=== PATIENT | female | born 1945 | race Caucasian/White ===

== ENCOUNTER 2016-10-17 03:48 | Inpatient (IN) | payer BC, MEDICARE ==
[~2016-10-17] VITALS: Ht 167.6 cm; Wt 95.9 kg
[2016-10-17 04:54] LABS: Urine Bilirubin Negative (Negative); Urine Blood Negative /uL (Negative); Urine Color Yellow (Yellow); Urine Glucose Normal (Normal); Urine Hyaline Cast FEW /lpf (0 - 2); Urine Ketone 1+ (Negative); Urine Mucus FEW (None Seen); Urine Nitrite Negative (Negative); Urine RBC <1 /hpf (0 - 4); Urine Squamous Epithelial Cell FEW /hpf (<5); Urine Urobilinogen Normal (Negative); Urine pH 5.5 (5.0-8.0)
[2016-10-17 05:05] LABS: Basophils # (auto) 0 uL; Basophils % (auto) 0.2 % (0.0-2.0); Eosinophils # (auto) 0 uL; Eosinophils % (auto) 0.2 % (0.0-7.0); Hematocrit 42.2 % (36.0-46.0); Hemoglobin 14.4 g/dL (12.2-16.2); Lymphocytes # (auto) 0.7 uL; Lymphocytes % (auto) 5.7 % (10.0-50.0); Mean Corpuscular Hemoglobin 32.6 pg (28.0-32.0); Mean Corpuscular Hgb Conc. 34.1 g/dL (32.0-36.0); Mean Corpuscular Volume 95.8 fL (80.0-100.0); Mean Platelet Volume 7.4 fL (7.4-10.4); Monocytes # (auto) 0.5 uL; Monocytes % (auto) 3.9 % (0.0-12.0); Neutrophils # (auto) 10.5 uL; Platelet Count (auto) 252 10^3/uL (140-450); Red Cell Distribution Width 12.9 % (11.6-16.0); White Blood Cell 11.7 10^3/uL (4.4-10.8)
[2016-10-17 05:25] LABS: Albumin 3.5 g/dL (3.4-5.0); BUN/Creatinine Ratio 24.2; Bilirubin, Total 0.5 mg/dL (0.2-1.0); Calcium 8.8 mg/dL (8.5-10.1); Magnesium 2.1 mg/dL (1.6-2.6); Total Protein 7.3 g/dL (6.4-8.2)
[2016-10-17] MEDS ORDERED: ONDANSETRON HCL 4 MG/2 ML VIAL IV ONE (07:15)
[2016-10-17] MEDS ORDERED: SODIUM CHLORIDE 0.9% 1,000 ML IV ONE ×2 (08:15→10:55)
[2016-10-17] MEDS ORDERED: cefTRIAXone 1GM/50ML D5W 50 ML IV ONE (08:15)
[2016-10-17] MEDS ORDERED: MORPHINE SULFATE 4 MG/ML SYRG IV ONE (08:45)
[2016-10-17] MEDS ORDERED: DIPHENOXYLATE W/ATROPINE 2.5 MG TAB PO ONE (11:00)
[2016-10-17] MEDS ORDERED: FAMOTIDINE (10MG/ML) 2ML VL IV SCH (11:15)
[2016-10-17] MEDS ORDERED: ACETAMINOPHEN 500 MG TAB PO PRN (11:15)
[2016-10-17] MEDS ORDERED: MILK OF MAGNESIA 30ML SUSP PO PRN (11:15)
[2016-10-17] MEDS ORDERED: LORazepam 0.5 MG TAB PO PRN (11:15)
[2016-10-17] MEDS ORDERED: DEXTROSE (50%) 50ML SYRG IV PRN (11:15)
[2016-10-17] MEDS ORDERED: TEMAZEPAM 15 MG CAP PO PRN (11:15)
[2016-10-17] MEDS ORDERED: LEVOFLOXACIN 500MG 100 ML IV ONE (11:15)
[2016-10-17] MEDS: SODIUM CHLORIDE 0.9% 1,000 ML IV SCH ×2 (11:28→17:57)
[2016-10-17] MEDS: ACCU-CHEK COMFORT CURVE STRIP VI SCH ×2 (12:00→17:57)
[2016-10-17] MEDS: metroNIDAZOLE 500MG/100ML 100 ML IV SCH ×2 (12:52→17:57)
[2016-10-17] MEDS ORDERED: PANTOPRAZOLE SODIUM 40 MG/10 ML VIAL IV ONE (13:15)
[2016-10-17] MEDS: PROMETHAZINE HCL 25 MG/ML 1ML IV PRN ×2 (13:33→20:27)
[2016-10-17] MEDS ORDERED: ESOM20CA PO (13:34)
[2016-10-17] MEDS ORDERED: ESTR0.3T PO (13:34)
[2016-10-17] MEDS ORDERED: NITR-39 PO (13:34)
[2016-10-17] MEDS ORDERED: OLME40TA27 PO (13:34)
[2016-10-17] MEDS ORDERED: RANI1TAB4 PO (13:34)
[2016-10-17] MEDS ORDERED: IBUP-1174 PO (13:34)
[2016-10-17] MEDS ORDERED: ATEN-60 PO (13:34)
[2016-10-17 16:55] VITALS: BP 155/77
[2016-10-17 19:14] LABS: Hematocrit 38.3 % (36.0-46.0); Hemoglobin 13.1 g/dL (12.2-16.2)
[2016-10-17] MEDS: MORPHINE SULF INJ 2 MG/ML SYRINGE 1ML IV PRN (20:26)
[2016-10-17] MEDS: HYDROcodone-ACET 5/325MG TAB PO PRN (20:42)
[2016-10-17 22:00] VITALS: BP 124/52
[2016-10-18] VITALS (7 sets, daily range): BP systolic 115–151; BP diastolic 53–84
[2016-10-18] MEDS: metroNIDAZOLE 500MG/100ML 100 ML IV SCH ×4 (00:13→18:09)
[2016-10-18 00:56] LABS: Hemoglobin 11.7 g/dL (12.2-16.2)
[2016-10-18] MEDS: ACCU-CHEK COMFORT CURVE STRIP VI SCH ×4 (06:00→18:15)
[2016-10-18] MEDS: HYDROcodone-ACET 5/325MG TAB PO PRN ×3 (06:34→19:50)
[2016-10-18 06:46] LABS: Basophils # (auto) 0 uL; Basophils % (auto) 0.3 % (0.0-2.0); Eosinophils # (auto) 0 uL; Eosinophils % (auto) 0.3 % (0.0-7.0); Hematocrit 33.9 % (36.0-46.0); Hemoglobin 11.6 g/dL (12.2-16.2); Lymphocytes # (auto) 1.1 uL; Lymphocytes % (auto) 21.7 % (10.0-50.0); Mean Corpuscular Hemoglobin 32.9 pg (28.0-32.0); Mean Corpuscular Hgb Conc. 34.3 g/dL (32.0-36.0); Mean Corpuscular Volume 95.8 fL (80.0-100.0); Mean Platelet Volume 7.2 fL (7.4-10.4); Monocytes # (auto) 0.5 uL; Monocytes % (auto) 10.2 % (0.0-12.0); Neutrophils # (auto) 3.5 uL; Neutrophils % (auto) 67.5 % (37.0-80.0); Platelet Count (auto) 196 10^3/uL (140-450); Red Cell Distribution Width 13.4 % (11.6-16.0); White Blood Cell 5.2 10^3/uL (4.4-10.8)
[2016-10-18] MEDS: SODIUM CHLORIDE 0.9% 1,000 ML IV SCH ×2 (06:59→17:12)
[2016-10-18 07:06] LABS: Albumin 2.2 g/dL (3.4-5.0); BUN/Creatinine Ratio 19.2; Calcium 6.9 mg/dL (8.5-10.1); Potassium 4.1 mmol/L (3.5-5.1)
[2016-10-18 07:10] LABS: Bilirubin, Total 0.4 mg/dL (0.2-1.0); Total Protein 5.5 g/dL (6.4-8.2)
[2016-10-18] MEDS ORDERED: ENOXAPARIN SOD 40 MG/0.4 ML SYRINGE SC SCH (10:00)
[2016-10-18] MEDS: PANTOPRAZOLE SODIUM 40 MG/10 ML VIAL IV SCH (10:10)
[2016-10-18] MEDS: LEVOFLOXACIN 500MG 100 ML IV SCH (10:11)
[2016-10-18 14:17] LABS: INR 1.02 (0.9-1.15); Prothrombin Time 11.1 sec (9.37-12.3)
[2016-10-18 18:38] LABS: Hematocrit 32.9 % (36.0-46.0); Hemoglobin 11.3 g/dL (12.2-16.2)
[2016-10-19] MEDS: MORPHINE SULF INJ 2 MG/ML SYRINGE 1ML IV PRN (00:01)
[2016-10-19] MEDS: ACCU-CHEK COMFORT CURVE STRIP VI SCH ×3 (00:02→12:00)
[2016-10-19] MEDS: metroNIDAZOLE 500MG/100ML 100 ML IV SCH ×3 (00:02→11:43)
[2016-10-19] MEDS: SODIUM CHLORIDE 0.9% 1,000 ML IV SCH ×2 (04:03→13:12)
[2016-10-19] MEDS: HYDROcodone-ACET 5/325MG TAB PO PRN ×2 (05:34→11:55)
[2016-10-19 05:46] LABS: Basophils # (auto) 0 uL; Basophils % (auto) 0.3 % (0.0-2.0); Eosinophils # (auto) 0.1 uL; Eosinophils % (auto) 1.4 % (0.0-7.0); Hematocrit 33.3 % (36.0-46.0); Hemoglobin 11.7 g/dL (12.2-16.2); Lymphocytes # (auto) 1.8 uL; Lymphocytes % (auto) 39.2 % (10.0-50.0); Mean Corpuscular Hemoglobin 33.2 pg (28.0-32.0); Mean Corpuscular Hgb Conc. 35.1 g/dL (32.0-36.0); Mean Corpuscular Volume 94.4 fL (80.0-100.0); Mean Platelet Volume 7.1 fL (7.4-10.4); Monocytes # (auto) 0.6 uL; Monocytes % (auto) 12.4 % (0.0-12.0); Neutrophils # (auto) 2.1 uL; Neutrophils % (auto) 46.7 % (37.0-80.0); Platelet Count (auto) 177 10^3/uL (140-450); Red Cell Distribution Width 13.1 % (11.6-16.0); White Blood Cell 4.5 10^3/uL (4.4-10.8)
[2016-10-19 06:00] VITALS: BP 126/72
[2016-10-19 06:05] LABS: Albumin 2.4 g/dL (3.4-5.0); BUN/Creatinine Ratio 12.2; Calcium 7.3 mg/dL (8.5-10.1); Potassium 3.6 mmol/L (3.5-5.1)
[2016-10-19 06:07] LABS: Bilirubin, Total 0.4 mg/dL (0.2-1.0); Total Protein 5.6 g/dL (6.4-8.2)
[2016-10-19 07:48] VITALS: BP 148/65
[2016-10-19 08:59] VITALS: BP 148/65
[2016-10-19] MEDS: LEVOFLOXACIN 500MG 100 ML IV SCH (10:06)
[2016-10-19] MEDS: PANTOPRAZOLE SODIUM 40 MG/10 ML VIAL IV SCH (10:06)
[2016-10-19 13:00] VITALS: BP 150/63
[2016-10-19 15:40] VITALS: BP 160/61
== END 2016-10-19 16:15 | disposition home or self-care (01) | DRG 392 ==
LOC: ER 03:48 → OVERFLOW 03:49 → CENTRAL 14:09
PROVIDERS: ADMIT Internal Medicine; ATTEND Internal Medicine
DX: K52.9 Noninfective gastroenteritis and colitis, unspecified (principal); K92.2 Gastrointestinal hemorrhage, unspecified; E86.0 Dehydration; I10 Essential (primary) hypertension; K57.90 Diverticulosis of intestine, part unspecified, without perforation or abscess without bleeding; K76.0 Fatty (change of) liver, not elsewhere classified; Z82.49 Family history of ischemic heart disease and other diseases of the circulatory system; Z83.3 Family history of diabetes mellitus; Z85.41 Personal history of malignant neoplasm of cervix uteri; Z87.442 Personal history of urinary calculi; Z88.1 Allergy status to other antibiotic agents; Z90.710 Acquired absence of both cervix and uterus; Z71.89 Other specified counseling; R73.9 Hyperglycemia, unspecified
CPT/HCPCS: 36415; 71010; 74176; 80053; 81001; 82150; 82270; 82962; 83036; 83690; 83735; 85014; 85018; 85025; 85045; 85610; 85652; 86141; 86850; 86900; 86901; 87040; 87086; 87493; 96365; 96367; 96375; C9113; J0696; J1956; J2405; J3490

== ENCOUNTER 2019-12-18 13:35 | Emergency (ER) | payer BC, MEDICARE ==
[~2019-12-18] VITALS: Ht 177.8 cm; Wt 99.8 kg
[~2019-12-18 13:35] MED LIST: ATEN-60 PO; ESOM20CA PO; ESTR0.3T PO; IBUP-1174 PO; NITR-39 PO; OLME40TA26 PO; RANI75TA65 PO
[2019-12-18 14:10] VITALS: BP 141/59
[2019-12-18] MEDS ORDERED: SODIUM CHLORIDE 0.9% 1,000 ML IVB ONE (14:50)
[2019-12-18] MEDS ORDERED: ONDANSETRON HCL 4 MG/2 ML VIAL IV ONE (15:00)
[2019-12-18 15:51] LABS: Basophils # (auto) 0 10 ^3/uL (0-0.2); Basophils % (auto) 0.5 % (0.0-2.0); Eosinophils # (auto) 0 10 ^3/uL (0-0.8); Eosinophils % (auto) 0.4 % (0.0-7.0); Hemoglobin 14.7 g/dL (12.2-16.2); Lymphocytes # (auto) 1.9 10 ^3/uL (0.4-5.4); Lymphocytes % (auto) 28.1 % (10.0-50.0); Mean Corpuscular Hemoglobin 32.7 pg (28.0-32.0); Mean Corpuscular Hgb Conc. 34.1 g/dL (32.0-36.0); Mean Corpuscular Volume 95.8 fL (80.0-100.0); Monocytes # (auto) 0.6 10 ^3/uL (0-1.3); Monocytes % (auto) 8.8 % (0.0-12.0); Neutrophils # (auto) 4.3 10 ^3/uL (1.6-8.6); Neutrophils % (auto) 62.2 % (37.0-80.0); Nucleated Red Blood Cells % 0.1 %; Platelet Count (auto) 189 10^3/uL (140-450); Red Blood Cells 4.48 10^6/uL (4.0-5.20); Red Cell Distribution Width 12.8 % (11.8-14.3); White Blood Cell 6.8 10^3/uL (4.4-10.8)
[2019-12-18 16:08] LABS: Albumin 3.6 g/dL (3.4-5.0); BUN/Creatinine Ratio 14.7; Calcium 9.3 mg/dL (8.5-10.1); Magnesium 2.6 mg/dL (1.6-2.6); Potassium 4.6 mmol/L (3.5-5.1)
[2019-12-18 16:11] LABS: Bilirubin, Total 0.5 mg/dL (0.2-1.0); Total Protein 7.7 g/dL (6.4-8.2)
[2019-12-18 16:17] LABS: INR 1.01 (0.9-1.15); Partial Thromboplastin Time 29.1 sec (23.64-32.05)
[2019-12-18 19:20] LABS: Urine Bacteria NONE SEEN /hpf (None Seen); Urine Blood Negative /uL (Negative); Urine Specific Gravity 1.009 (1.001-1.035); Urine WBC 4 /hpf (0 - 5)
== END 2019-12-18 19:11 | disposition home or self-care (01) ==
LOC: ER 13:35 → EDBD 13:35 → ER 19:11
DX: R06.02 Shortness of breath (principal); R11.2 Nausea with vomiting, unspecified; I10 Essential (primary) hypertension; Z20.828 Contact with and (suspected) exposure to other viral communicable diseases; Z79.899 Other long term (current) drug therapy
CPT/HCPCS: 36415; 71045; 80053; 81001; 83690; 83735; 85025; 85610; 85730; 93005; 96361; 96374; 99285; C9803; J2405; J7030; U0003

== ENCOUNTER 2025-01-26 09:22 | Inpatient (IN) | payer MEDICARE, BC ==
[~2025-01-26] VITALS: Ht 167.6 cm; Wt 99.5 kg
[~2025-01-26 09:22] MED LIST changes: -OLME40TA26 PO; +OLME40TA78 PO
[2025-01-26 09:35] VITALS: PULSE 59; RESP 14; O2SAT 98
--- NOTE | 2025-01-26 09:38 | ED.PDOC ---
GI ASSESSMENT HPI Comments This is a 79 year old female PRADIP presenting to the ED with chief complaint of abdominal pain. Patient reports that she has been experiencing LLQ abdominal pain with associated left flank pain, nausea, dizziness, generalized weakness, and dysuria for the past week. Patient relays that she needs to straight cath herself due to having cervical cancer at this time. Patient states she is passing gas and does not believe her symptoms to be due to a bowel obstruction. Patient denies any vomiting, diarrhea, fever, chills, hematuria, or chest pain. Chief Complaint: Abdominal Pain Time Seen by MD: 09:36 Primary Care Provider: FLORENTINO Reviewed Notes: Nurses Notes, Header Up Notes, Medications, Allergies Allergies: Coded Allergies: Cephalexin (Verified Allergy, Unknown, 10/17/16) Home Meds Reported Medications Nitrofurantoin (Macrodantin) 100 Mg Cap, 1 CAP PO, #20 CAP 10/17/16 Ibuprofen (Motrin Ib) 200 Mg Tab, 800 MG PO PRN, TAB 10/17/16 Ranitidine Hcl (Ranitidine 75) 75 Mg Tab, PO DAILY, TAB 10/17/16 Esomeprazole Magnesium Trihydr (Nexium) 20 Mg Cap, PO DAILY, #30 CAP 2 Refills 10/17/16 Estrogens, Conjugated (PREMARIN TABLET) 0.3 Mg Tb, 0.9 MG PO DAILY, #30 TAB 11 Refills 10/17/16 Olmesartan Medoxomil (Benicar) 40 Mg Tab, 1 TAB PO DAILY, #30 TAB 5 Refills 10/17/16 Atenolol (Atenolol) 25 Mg Tab, 75 MG PO DAILY for 30 Days, MG 10/17/16 Information Source: Patient, Emergency Med Personnel Mode of Arrival: EMS Timing: Days Duration: Since onset Prehospital treatment: None Quality: Sharp Vomitus: None Stool: Normal Severity: Moderate Recent: None Recent Hx of: None Pain Location: LLQ Associated sign and symptoms: Nausea, Abdominal Pain Past Medical History PAST MEDICAL HISTORY: Cancer (Cervical), HTN, Kidney Stones Past Medical History (Other): Diverticulitis, Bowel obstruction x 2 years ago Surgical History: Hysterectomy BOX CHIPPER History: No Pertinent BOX CHIPPER History Family History Family History: Reviewed,noncontributory to illness, Unobtainable Social History Smoker: Non-Smoker Alcohol: Denies ETOH Use Drugs: Denies Drug Use Lives In: Home Constitutional: reports: weakness; denies: chills, diaphoresis, fatigue, fever, malaise, sweats, others EENTM: denies: blurred vision, double vision, ear bleeding, ear discharge, ear drainage, ear pain, ear ringing, eye pain, eye redness, hearing loss, mouth pain, mouth swelling, nasal discharge, nose bleeding, nose congestion, nose pain, photophobia, tearing, throat pain, throat swelling, voice changes, others Respiratory: denies: cough, hemoptysis, orthopnea, SOB at rest, shortness of breath, SOB with excertion, stridor, wheezing, others Cardiovascular: denies: chest pain, dizzy spells, diaphoresis, Dyspnea on exertion, edema, irregular heart beat, left arm pain, lightheadedness, palpitations, PND, syncope, others Gastrointestinal: reports: abdominal pain, nausea; denies: abdomen distended, blood streaked bowels, constipated, diarrhea, dysphagia, difficulty swallowing, hematemesis, melena, poor appetite, poor fluid intake, rectal bleeding, rectal pain, vomiting, others Genitourinary: reports: dysuria, flank pain; denies: abnormal vagina bleeding, burning, dyspareunia, frequency, hematuria, incontinence, pain, , vagina discharge, urgency, others Neurological: reports: dizziness; denies: fainting, headache, left sided numbness, left sided weakness, numbness, paresthesia, pre-existing deficit, right sided numbness, right sided weakness, seizure, speech problems, tingling, tremors, weakness, others Musculoskeletal: denies: back pain, gout, joint pain, joint swelling, muscle pain, muscle stiffness, neck pain, others Integumetry: denies: bruises, change in color, change in hair/nails, dryness, laceration, lesions, lumps, rash, wounds, others Allergic/Immunocompromised: denies: Difficulty Healing, Frequent Infections, Hives, Itching, others Hematologic/Lymphatic: denies: anemia, blood clots, easy bleeding, easy bruisi ng, swollen glands, others Endocrine: denies: excessive hunger, excessive sweating, excessive thirst, exce ssive urination, flushing, intolerance to cold, intolerance to heat, unexplained weight gain, unexplained weight loss, others Psychiatric: denies: anxiety, bipolar disorder, depression, hopeless, panic disorder, schizophrenia, sleepless, suicidal, others All Other Systems: Reviewed and Negative Physical Exam General Appearance: No Apparent Distress, Normal HEENT: Normal ENT Inspection, Pharynx Normal, TMs Normal Neck: Full Range of Motion, Non-Tender, Normal, Normal Inspection Respiratory: Chest Non-Tender, Lungs Clear, No Accessory Muscle Use, No Respiratory Distress, Normal Breath Sounds Cardiovascular: No Edema, No JVD, No Murmur, No Gallop, Normal Peripheral Pulses, Regular Rate/Rhythm Breast Exam: Deferred Gastrointestinal: No Organomegaly, Non Tender, No Pulsatile Mass, Normal Bowel Sounds, Soft Genitalia: Deferred Pelvic: Deferred Rectal: Deferred Extremities: No calf tenderness, Normal capillary refill, Normal inspection, Normal range of motion, Non-tender, No pedal edema Musculoskeletal : Apperance: Normal Neurologic: Alert, foil cutter II-XII nml as Tested, No Motor Deficits, Normal Affect, Normal Mood, No Sensory Deficits Cerebellar Function: Normal Reflexes: Normal Skin: Dry, Normal Color, Warm Lymphatic: No Adenopathy Was a procedure done? Was a procedure done?: No GI differential Dx Differential Diagnosis: Gastroenteritis, GI hemorrhage, UTI, Urolithiasis, Dehydration, Electrolyte Imbalance X-Ray, Labs, Meds, VS Vital Signs Date Time Temp Pulse Resp B/P (MAP) Pulse Ox O2 Delivery O2 Flow Rate FiO2 01/26/25 11:14 66 15 159/68 01/26/25 09:42 98.0 60 17 145/72 (96) 98 98.0 01/26/25 09:35 97.6 59 14 145/72 (96) 98 97.6 01/26/25 09:35 59 14 98 Room Air* 0 21 01/26/25 09:34 57 01/26/25 09:29 99.8 64 20 149/55 96 99.8 Lab Test 01/26/25 11:42 01/26/25 10:50 01/26/25 09:58 Range/Units Troponin I High Sensitivity 3 L 3 L </=34 ng/L Urine Color Light-yellow Yellow Urine Clarity Clear Clear Urine pH 5.5 5.0-9.0 Urine Specific Munith 1.008 1.001-1.035 Urine Protein Negative Negative Urine Ketones Negative Negative Urine Blood Negative Negative /uL Urine Nitrite Negative Negative Urine Bilirubin Negative Negative Urine Urobilinogen Normal Negative mg/dL Urine Leukocyte Esterase Negative Negative /uL Urine RBC 1 0 - 4 /hpf Urine Microscopic WBC 1 0-5 /HPF Urine Squamous Epithelial Cells Few <5 /hpf Urine Bacteria Few H None Seen /hpf Urine Glucose Normal Normal mg/dL White Blood Count 5.7 4.4-10.8 10^3/uL Red Blood Count 4.26 4.0-5.20 10^6/uL Hemoglobin 14.0 12.2-16.2 g/dL Hematocrit 40.7 36.0-46.0 % Mean Corpuscular Volume 95.5 80.0-100.0 fL Mean Corpuscular Hemoglobin 33.0 H 28.0-32.0 pg Mean Corpuscular Hemoglobin Concent 34.5 32.0-36.0 g/dL Red Cell Distribution Width 13.2 11.8-14.3 % Platelet Count 198 140-450 10^3/uL Mean Platelet Volume 7.3 6.9-10.8 fL Neutrophils (%) (Auto) 52.7 37.0-80.0 % Lymphocytes (%) (Auto) 34.2 10.0-50.0 % Monocytes (%) (Auto) 10.5 0.0-12.0 % Eosinophils (%) (Auto) 1.9 0.0-7.0 % Basophils (%) (Auto) 0.7 0.0-2.0 % Neutrophils # (Auto) 3.0 1.6-8.6 10 ^3/uL Lymphocytes # (Auto) 1.9 0.4-5.4 10 ^3/uL Monocytes # (Auto) 0.6 0-1.3 10 ^3/uL Eosinophils # (Auto) 0.1 0-0.8 10 ^3/uL Basophils # (Auto) 0 0-0.2 10 ^3/uL Nucleated Red Blood Cells 0.2 % Sodium Level 141 136-145 mmol/L Potassium Level 4.3 3.5-5.1 mmol/L Chloride Level 109 H 98-107 mmol/L Carbon Dioxide Level 23 20-31 mmol/L Anion Gap 9 5-15 Blood Urea Nitrogen 16 9-23 mg/dL Creatinine 1.10 H 0.550-1.02 mg/dL Glomerular Filtration Rate Calc 52 >90 mL/min BUN/Creatinine Ratio 14.5 10.0-20.0 Serum Glucose 122 H 74-106 mg/dL Lactic Acid Level 1.1 0.4-2.0 mmol/L Calcium Level 9.5 8.7-10.4 mg/dL Current Medications Medications (Trade) Dose Ordered Sig/Jenna Route Start Time Stop Time Status Last Admin Morphine Sulfate 4 mg ONCE ONCE IV 01/26/25 09:45 01/26/25 09:46 DC 01/26/25 11:14 Sodium Chloride 1,000 ml @ 1,000 mls/hr Q1H ONCE IV 01/26/25 09:45 01/26/25 10:44 DC 01/26/25 11:15 Ondansetron HCl (Zofran) 4 mg ONCE ONCE IV 01/26/25 09:45 01/26/25 09:46 DC 01/26/25 10:58 Time of 1ST Reevaluation: 10:35 Reevaluation 1ST: Unchanged Patient Education/Counseling: Diagnosis, Treatment Family Education/Counseling: No Family Present SEPSIS Sepsis Screen Date sepsis recognized/suspect: Jan 26, 2025 Time Sepsis recognized/suspect: 930 Recent Procedure: No On Antibiotic Therapy: No Respiratory Rate >20: No Heart Rate >90: No Temp<36 C (96.8 F) or >38.3 C: No SBP <90 or MAP <65 mmHG: No New Acute Mental Status Change: No Is the patient on CPAP, BIPAP,: No Physician Orders Chest Portable (01/26/25 09:33) Ct Ab Pel With Iv Con Only (01/26/25 09:33) Blood Culture (01/26/25 09:33) Troponin-I Hs (01/26/25 12:33) Electrocardigram (01/26/25 09:51) Vital Signs Date Time Temp Pulse Resp B/P (MAP) Pulse Ox O2 Delivery O2 Flow Rate FiO2 01/26/25 11:14 66 15 159/68 01/26/25 09:42 98.0 60 17 145/72 (96) 98 98.0 01/26/25 09:35 97.6 59 14 145/72 (96) 98 97.6 01/26/25 09:35 59 14 98 Room Air* 0 21 01/26/25 09:34 57 01/26/25 09:29 99.8 64 20 149/55 96 99.8 Laboratory Tests Test 01/26/25 09:58 Lactic Acid Level 1.1 mmol/L (0.4-2.0) White Blood Count 5.7 10^3/uL (4.4-10.8) Medications Medications Dose Ordered Sig/Jenna Route Start Time Stop Time Status Last Admin Dose Admin Morphine Sulfate 4 mg ONCE ONCE IV 01/26/25 09:45 01/26/25 09:46 DC 01/26/25 11:14 Ondansetron HCl 4 mg ONCE ONCE IV 01/26/25 09:45 01/26/25 09:46 DC 01/26/25 10:58 Sodium Chloride 1,000 ml @ 1,000 mls/hr Q1H ONCE IV 01/26/25 09:45 01/26/25 10:44 DC 01/26/25 11:15 Departure 1 Departure Time of Disposition: 13:20 (Patient presented with abdominal pain that was concerning for possible appendicits, gastritis, cholecystitis, colitis, gastroenteritis, sbo, or orther possible surgical emergency. Data: 1. I ordered and reviewed the result of at least 3 labs including a CBC, BMP, and Urinalysis. 2. I independently interpreted the following tests: CT Abdoment and Pelvis is concerning for benign abdomen .Risk:This patient has a high risk of morbidity due to further diagnostic testing or treatment and may suffer from an acute abdominal process disorder. Workup reveals intractable abdominal pain and patient should be admitted for further workup. and possible expert consultation. ) Impression: Primary Impression: Intractable abdominal pain Additional Impression: Nausea Disposition: ADMITTED INPATIENT Admit to: Med Surg Condition: Serious Critical Care Note Critical Care Time?: Yes Critical care comment: Intractable abdominal pain Authorized and Performed by: Terry Wall MD Total critical care time: Approximately 42 minutes Due to a high probability of clinically significant, life threatening deterioration, the patient required my highest level of preparedness to intervene emergently and I personally spent this critical care time directly and personally managing the patient. This critical care time included obtaining a history; examining the patient; pulse oximetry; ordering and review of studies; arranging urgent treatment with development of a management plan; evaluation of patient's response to treatment; frequent reassessment; and, discussions with other providers. This critical care time was performed to assess and manage the high probability of imminent, life-threatening deterioration that could result in multi-organ failure. It was exclusive of separately billable procedures and treating other patients and teaching time. Please see my other sections and the rest of the note for further information on patient assessment and treatment. Stability Stability form required: No Heart Score Heart Score: Heart Score Response (Comments) Value History N/A 0 EKG N/A 0 Age N/A 0 Risk Factors N/A 0 Troponin N/A 0 Total 0 I personally scribed for TERRY WALL MD ([email or web address]) on 01/26/25 at 09:38. Electronically submitted by Camron Rodarte ([email or web address]). TERRY WALL MD Jan 26, 2025 09:38
--- NOTE | 2025-01-26 10:09 | DVH ---
CHEST RADIOGRAPH Indication: abdominal pain Technique: Single frontal view of the chest was obtained COMPARISON: None FINDINGS: Lines and Tubes: None Lungs: Clear Pleura: No effusion. No pneumothorax. Cardiomediastinal contours: Unremarkable Bones: Unremarkable IMPRESSION: No acute disease.
[2025-01-26 10:22] LABS: Hematocrit 40.7 % (36.0-46.0); Hemoglobin 14.0 g/dL (12.2-16.2); Mean Corpuscular Hemoglobin 33.0 pg (28.0-32.0); Mean Corpuscular Volume 95.5 fL (80.0-100.0); Nucleated Red Blood Cells % 0.2 %
[2025-01-26 10:46] LABS: Potassium 4.3 mmol/L (3.5-5.1); Sodium 141 mmol/L (136-145)
[2025-01-26 10:47] LABS: Anion Gap 9 (5-15); Calcium 9.5 mg/dL (8.7-10.4); Carbon Dioxide 23 mmol/L (20-31); Chloride 109 mmol/L (98-107)
[2025-01-26 10:52] LABS: BUN/Creatinine Ratio 14.5 (10.0-20.0); Blood Urea Nitrogen 16 mg/dL (9-23)
[2025-01-26 10:54] LABS: Glucose 122 mg/dL (74-106)
[2025-01-26] MEDS: ONDANSETRON HCL 4 MG/2 ML VIAL IV ONE (10:58)
[2025-01-26 10:59] LABS: Urine Protein, UAD Negative (Negative)
[2025-01-26] MEDS: IOHEXOL 300 MG/ML 100ML BOTTLE IJ ONE ×2 (11:06→11:48)
[2025-01-26] MEDS: MORPHINE SULFATE 4 MG/ML SYR/VIAL IV ONE (11:14)
[2025-01-26] MEDS: SODIUM CHLORIDE 0.9% 1,000 ML IV ONE (11:15)
--- NOTE | 2025-01-26 11:47 | DVH ---
CT CT AB PEL WITH IV CON ONLY INDICATION: abdominal pain EXAM DATE: 01/26/2025 10:58 AM COMPARISON: None RADIATION DOSE: CTDIvol: 16.55 mGy, DLP: 1037.04 mGy*cm PROCEDURE: Helical CT images were obtained of the abdomen and pelvis with IV contrast Sagittal and co radha reconstructions are provided. ORAL CONTRAST: None. ADDITIONAL IMAGES / REFORMATS: None All CT s cans at this medical facility are performed using dose modulation techniques as appropriate to a perf ormed exam including the following: Automated exposure control was utilized; adjustment of the MA and /or KV according to patient size; and use of iterative reconstruction technique. FINDINGS: LUNG BASE: Normal. LIVER: Normal. GALLBLADDER AND BILIARY TREE: No calcified gallstones. Normal caliber wall. No intra- or extrahepatic biliary ductal dilation. PANCREAS: Normal. SPLEEN: Normal. BOWEL: Normal. ADRENALS: Normal. KIDNEYS AND URETER: Normal. BLADDER: Normal. REPRODUCTIVE ORGANS: Absent uterus. LYMPH NODES:No lymphadenopathy. PERITONEUM: No ascites or free air. No other fluid collection. VESSELS: Scattered atherosclerotic calcifications are noted. RETROPERITONEUM: Multiple surgical clips are seen in the low pelvis and retroperitoneum. ABDOMINAL WALL: Normal. BONES: Scattered osseous degenerative changes are noted. IMPRESSION: No acute intraabdominal abnormality.
--- NOTE | 2025-01-26 14:22 | DVHHP2 ---
History of Present Illness Reason for Visit: Back pain radiating to the left upper quadrant of abdomen History of Present Illness Milagros Aden is a 79-year-old female with past medical history of multiple falls, bilateral ankle fractures, cervical cancer, hypertension, nephrolithiasis, diverticulitis, bowel obstruction, and hysterectomy who presents to the ED with abdominal pain that began Thursday last week. She reports that the pain is 5/10 throbbing and constant. She states that she has it started from her lower center of the back radiated up to her left upper quadrant. She states that the abdominal pain started on Thursday. She also reports that there are no alleviating or triggering factors. Patient's has been Vahe and son Eduardo at the bedside. Patient endorses that she fell 1 year ago as well. She also reports that she has broken both her ankles and 1 had a cast while the other 1 had a boot but no need for surgery. She also reports that she does not use a DME. Patient denies any recent trauma or injury, recent travels, recent sick contacts, recent ingestion of spoiled food, chest pain, shortness of breath, fever, chills, lightheadedness, dizziness, vomiting, or diarrhea. Cardiovascular: HTN Past Medical History Multiple falls Bilateral ankle fractures Cervical cancer Nephrolithiasis Diverticulitis Bowel obstructions Past Surgical History: Hysterectomy Family History: Other (Mom with heart disease, NC, and pacemaker.) Smoke: No ALCOHOL: none Drugs: None Lives: with Family Domestic Violence: Neg Review of Systems Constitutional: Yes: Weakness, Other Gastrointestinal: Nausea, Abdominal Pain Genitourinary: Dysuria Musculoskeletal: back pain Allergies: Coded Allergies: Cephalexin (Verified Allergy, Unknown, 10/17/16) Medications Current Medications Medications Dose Ordered Sig/Jenna Route Start Time Stop Time Status Last Admin Dose Admin Acetaminophen/ Hydrocodone Bitart 1 tab Q4HP PRN PO 01/26/25 14:30 UNV Ondansetron HCl 4 mg Q4HP PRN IV 01/26/25 14:30 UNV Acetaminophen 650 mg Q6HP PRN PO 01/26/25 14:30 UNV Morphine Sulfate 2 mg Q4HPRN PRN IV 01/26/25 14:30 UNV Exam Vital Signs Vital Signs Date Time Temp Pulse Resp B/P (MAP) Pulse Ox O2 Delivery O2 Flow Rate FiO2 01/26/25 13:18 51 10 126/61 01/26/25 09:42 98.0 98 98.0 01/26/25 09:35 Room Air* 0 21 General Appearance: Alert, Oriented X3, Cooperative, No acute distress HEENT: Atraumatic, PERRLA, Mucous membr. moist/pink Respiratory: Clear to auscultation, Normal air movement Cardiovascular: Regular rate, Normal S1, Normal S2 Abdominal: Normal bowel sounds, Soft Extremities: No clubbing, No cyanosis, Normal pulses Skin: No significant lesion Neuro: Normal speech, Strength at 5/5 X4 ext, Normal tone, Sensation intact Psych/Mental Status: Mental status NL, Mood NL Labs/Xrays Labs Test 01/26/25 13:41 01/26/25 10:50 01/26/25 09:58 Range/Units Troponin I High Sensitivity 4 </=34 ng/L Urine Color Light-yellow Yellow Urine Clarity Clear Clear Urine pH 5.5 5.0-9.0 Urine Specific Robinson 1.008 1.001-1.035 Urine Protein Negative Negative Urine Ketones Negative Negative Urine Blood Negative Negative /uL Urine Nitrite Negative Negative Urine Bilirubin Negative Negative Urine Urobilinogen Normal Negative mg/dL Urine Leukocyte Esterase Negative Negative /uL Urine RBC 1 0 - 4 /hpf Urine Microscopic WBC 1 0-5 /HPF Urine Squamous Epithelial Cells Few <5 /hpf Urine Bacteria Few H None Seen /hpf Urine Glucose Normal Normal mg/dL White Blood Count 5.7 4.4-10.8 10^3/uL Red Blood Count 4.26 4.0-5.20 10^6/uL Hemoglobin 14.0 12.2-16.2 g/dL Hematocrit 40.7 36.0-46.0 % Mean Corpuscular Volume 95.5 80.0-100.0 fL Mean Corpuscular Hemoglobin 33.0 H 28.0-32.0 pg Mean Corpuscular Hemoglobin Concent 34.5 32.0-36.0 g/dL Red Cell Distribution Width 13.2 11.8-14.3 % Platelet Count 198 140-450 10^3/uL Mean Platelet Volume 7.3 6.9-10.8 fL Neutrophils (%) (Auto) 52.7 37.0-80.0 % Lymphocytes (%) (Auto) 34.2 10.0-50.0 % Monocytes (%) (Auto) 10.5 0.0-12.0 % Eosinophils (%) (Auto) 1.9 0.0-7.0 % Basophils (%) (Auto) 0.7 0.0-2.0 % Neutrophils # (Auto) 3.0 1.6-8.6 10 ^3/uL Lymphocytes # (Auto) 1.9 0.4-5.4 10 ^3/uL Monocytes # (Auto) 0.6 0-1.3 10 ^3/uL Eosinophils # (Auto) 0.1 0-0.8 10 ^3/uL Basophils # (Auto) 0 0-0.2 10 ^3/uL Nucleated Red Blood Cells 0.2 % Sodium Level 141 136-145 mmol/L Potassium Level 4.3 3.5-5.1 mmol/L Chloride Level 109 H 98-107 mmol/L Carbon Dioxide Level 23 20-31 mmol/L Anion Gap 9 5-15 Blood Urea Nitrogen 16 9-23 mg/dL Creatinine 1.10 H 0.550-1.02 mg/dL Glomerular Filtration Rate Calc 52 >90 mL/min BUN/Creatinine Ratio 14.5 10.0-20.0 Serum Glucose 122 H 74-106 mg/dL Lactic Acid Level 1.1 0.4-2.0 mmol/L Calcium Level 9.5 8.7-10.4 mg/dL CHEST RADIOGRAPH Indication: abdominal pain Technique: Single frontal view of the chest was obtained COMPARISON: None FINDINGS: Lines and Tubes: None Lungs: Clear Pleura: No effusion. No pneumothorax. Cardiomediastinal contours: Unremarkable Bones: Unremarkable IMPRESSION: No acute disease. CT CT AB PEL WITH IV CON ONLY INDICATION: abdominal pain EXAM DATE: 01/26/2025 10:58 AM COMPARISON: None RADIATION DOSE: CTDIvol: 16.55 mGy, DLP: 1037.04 mGy*cm PROCEDURE: Helical CT images were obtained of the abdomen and pelvis with IV contrast Sagittal and coronal reconstructions are provided. ORAL CONTRAST: None. ADDITIONAL IMAGES / REFORMATS: None All CT scans at this medical facility are performed using dose modulation techniques as appropriate to a performed exam including the following: Automated exposure control was utilized; adjustment of the MA and/or KV according to patient size; and use of iterative reconstruction technique. FINDINGS: LUNG BASE: Normal. LIVER: Normal. GALLBLADDER AND BILIARY TREE: No calcified gallstones. Normal caliber wall. No intra- or extrahepatic biliary ductal dilation. PANCREAS: Normal. SPLEEN: Normal. BOWEL: Normal. ADRENALS: Normal. KIDNEYS AND URETER: Normal. BLADDER: Normal. REPRODUCTIVE ORGANS: Absent uterus. LYMPH NODES:No lymphadenopathy. PERITONEUM: No ascites or free air. No other fluid collection. VESSELS: Scattered atherosclerotic calcifications are noted. RETROPERITONEUM: Multiple surgical clips are seen in the low pelvis and retroperitoneum. ABDOMINAL WALL: Normal. BONES: Scattered osseous degenerative changes are noted. IMPRESSION: No acute intraabdominal abnormality. SEPSIS Sepsis Screen Date sepsis recognized/suspect: Jan 26, 2025 Time Sepsis recognized/suspect: 930 Recent Procedure: No On Antibiotic Therapy: No Respiratory Rate >20: No Heart Rate >90: No Temp<36 C (96.8 F) or >38.3 C: No SBP <90 or MAP <65 mmHG: No New Acute Mental Status Change: No Is the patient on CPAP, BIPAP,: No Physician Orders Chest Portable (01/26/25 09:33) Ct Ab Pel With Iv Con Only (01/26/25 09:33) Blood Culture (01/26/25 09:33) Electrocardigram (01/26/25 09:51) Admit (01/26/25 14:19) Allergies (01/26/25 14:19) Code Status (01/26/25 14:19) Hydrocodone-Acet 5/325mg Tab ([place] 532 (01/26/25 14:30) Ondansetron Hcl (Zofran) (01/26/25 14:30) Complete Blood Count (01/27/25 04:00) Comprehensive Metabolic Panel (01/27/25 04:00) Cardiac Diet-2gna,Lofat,Lochol (01/26/25 Dinner) Acetaminophen Tablet (Tylenol Tablet) (01/26/25 14:30) Morphine Sulfate Injection (01/26/25 14:30) Sequential Compression Device (01/26/25 ) Atenolol Tablet (Tenormin Tablet) (01/27/25 10:00) Vital Signs Date Time Temp Pulse Resp B/P (MAP) Pulse Ox O2 Delivery O2 Flow Rate FiO2 01/26/25 13:18 51 10 126/61 01/26/25 11:14 66 15 159/68 01/26/25 09:42 98.0 60 17 145/72 (96) 98 98.0 01/26/25 09:35 97.6 59 14 145/72 (96) 98 97.6 01/26/25 09:35 59 14 98 Room Air* 0 21 01/26/25 09:34 57 01/26/25 09:29 99.8 64 20 149/55 96 99.8 Laboratory Tests Test 01/26/25 09:58 Lactic Acid Level 1.1 mmol/L (0.4-2.0) White Blood Count 5.7 10^3/uL (4.4-10.8) Medications Medications Dose Ordered Sig/Jenna Route Start Time Stop Time Status Last Admin Dose Admin Morphine Sulfate 4 mg ONCE ONCE IV 01/26/25 09:45 01/26/25 09:46 DC 01/26/25 11:14 4 MG Ondansetron HCl 4 mg ONCE ONCE IV 01/26/25 09:45 01/26/25 09:46 DC 01/26/25 10:58 4 MG Sodium Chloride 1,000 ml @ 1,000 mls/hr Q1H ONCE IV 01/26/25 09:45 01/26/25 10:44 DC 01/26/25 11:15 1,000 MLS/HR Assessment/Plan Assessment/Plan Assessment Intractable abdominal pain with nausea likely due to gastroenteritis versus gastritis Dysuria Obesity RICHAR likely prerenal History of multiple falls History of bilateral ankle fractures History of cervical cancer History of hypertension History of nephrolithiasis History of diverticulitis History of bowel obstruction History of hysterectomy Plan Admit to [facility] IV antibiotics-Zosyn UA noted Troponin noted negative x2 Chest x-ray noted CT abdomen and pelvis noted X-ray lumbar spine Blood culture Lactic level Diet Home medications reconciled DVT prophylaxis-not indicated no history of GERD or GI bleed PUD prophylaxis-PPIs Discussed plan of care with patient, patient's spouse, patient's son, and nurse Counseled patient on lifestyle modifications, diet, and exercise Discussed in length with patient regarding utilizing a DME for ambulation due to the multiple falls and patient was very defensive [id number] Preventive counseling healthy eating habits, physical activity, and regular checkups Plan discussed with: Patient My Orders Orders - AVELINA VERA [employer] Procedure Category Date Status Time Admit ADMIT 01/26/25 Transmitted 14:19 Allergies VALENTIN 01/26/25 In Process 14:19 Code Status CODE 01/26/25 Transmitted 14:19 Hydrocodone-Acet PHA 01/26/25 Logged 5/325mg Tab ([place] 14:30 Ondansetron Hcl PHA 01/26/25 Transmitted (Zofran) 14:30 Complete Blood Count LAB 01/27/25 Verified 04:00 Comprehensive LAB 01/27/25 Verified Metabolic Panel 04:00 Cardiac DIET 01/26/25 Transmitted Diet-2gna,Lofat,Lochol Dinner Acetaminophen Tablet PHA 01/26/25 Transmitted (Tylenol Tablet) 14:30 Morphine Sulfate PHA 01/26/25 Transmitted Injection 14:30 Sequential VALENTIN 01/26/25 In Process Compression Device Atenolol Tablet PHA 01/27/25 Verified (Tenormin Tablet) 10:00 Date of Service: Jan 26, 2025 Billing Provider: AVELINA VERA Common Visit Codes: 00142-[id number] INP/OBS CARE (HIGH) Secondary Visit Codes: 52340-[id number] COUNSELING IND AVELINA VERA Jan 26, 2025 14:22
[2025-01-26] MEDS ORDERED: ONDANSETRON HCL 4 MG/2 ML VIAL IV PRN (14:30)
[2025-01-26] MEDS ORDERED: ACETAMINOPHEN 325 MG TAB PO PRN (14:30)
[2025-01-26] MEDS ORDERED: MORPHINE SULFATE INJ 2 MG/ml SYRG IV PRN (14:30)
[2025-01-26] MEDS: FAMOTIDINE (10MG/ML) 2ML VL IV SCH (15:29)
--- NOTE | 2025-01-26 15:52 | DVH ---
Date: 01/26/2025 03:09 PM Examination: XY KUB ABDOMEN SINGLE VIEW History: back pain Comparison: None TECHNIQUE: Frontal views of the abdomen was obtained. FINDINGS: Bowel gas pattern is unremarkable. The lung bases are unremarkable. No acute osseous abnormality identified. IMPRESSION: 1. Nonobstructive bowel gas pattern. 2. Status post lymph node removal along the iliac chain on the right and left. 3. Contrast in the bladder.
--- NOTE | 2025-01-26 15:59 | DVH ---
INDICATION: back pain TECHNIQUE: Frontal and lateral views of the lumbar spine were obtained. COMPARISON: None FINDINGS: Multilevel degenerative changes most severe L4-L5 through L5-S1 with moderate to severe harvey ral foraminal and spinal canal stenosis.. There are no fractures or subluxations. Vertebral body heig hts and disc spaces are well maintained. Paravertebral soft tissues are unremarkable. IMPRESSION: 1. Of the visualized spine, there is no evidence for fracture or subluxation.
[2025-01-26] MEDS: PIPERACILLIN-TAZOB 3.375GM 100 ML IV ONE (16:00)
[2025-01-26 17:09] VITALS: BP 119/67; PULSE 52; RESP 18; TEMP 98; O2SAT 96
--- NOTE | 2025-01-26 18:46 | ECG ---
[facility] Test Date: 2025-01-26 Test Time: 09:30:25 Pat Name: CLAUDIA HOYT Department: Room: 0250 A Gender: F Auricular Therapist: MATI : [id number] Requested By: TERRY SANCHEZ Order Number: [id number] Reading MD: Trever Phillips Measurements Intervals [place] Rate: 57 P: 46 OK: 213 QRS: 24 QRSD: 92 T: 18 QT: 424 QTc: 413 Interpretive Statements Sinus rhythm Borderline prolonged OK interval Low voltage, precordial leads Electronically Signed On 01-30-2025 10:18:45 PDT by Trever Phillips Please click the below link to view image of tracing.
[2025-01-26 20:00] VITALS: PULSE 53; RESP 17; O2SAT 99
[2025-01-26] MEDS: PIPERACILLIN-TAZOB 3.375GM 100 ML IV SCH (20:59)
[2025-01-26 21:00] VITALS: BP 128/60; PULSE 77; RESP 18; TEMP 97.9; O2SAT 96
[2025-01-26] MEDS: HYDROcodone-ACET 5/325MG TAB PO PRN (21:00)
[2025-01-27] VITALS (8 sets, daily range): BP systolic 114–136; BP diastolic 49–74; PULSE 51–72; RESP 17–19; TEMP 96.9–98; O2SAT 93–97
[2025-01-27 07:38] LABS: Hematocrit 37.7 % (36.0-46.0); Hemoglobin 13.2 g/dL (12.2-16.2); Mean Corpuscular Hemoglobin 33.3 pg (28.0-32.0); Mean Corpuscular Volume 95.0 fL (80.0-100.0); Nucleated Red Blood Cells % 0.1 %
[2025-01-27 07:41] LABS: Alanine Aminotransferase 32 U/L (7-40); Alkaline Phosphatase 82 U/L (46-116); Anion Gap 8 (5-15); Calcium 9.2 mg/dL (8.7-10.4); Carbon Dioxide 23 mmol/L (20-31); Potassium 4.4 mmol/L (3.5-5.1); Sodium 141 mmol/L (136-145)
[2025-01-27 07:43] LABS: Albumin 3.8 g/dL (3.2-4.8)
[2025-01-27 07:44] LABS: BUN/Creatinine Ratio 12.2 (10.0-20.0); Blood Urea Nitrogen 12 mg/dL (9-23); Total Protein 6.5 g/dL (5.7-8.2)
[2025-01-27 07:46] LABS: Bilirubin, Total 0.5 mg/dL (0.2-1.0)
[2025-01-27 07:56] LABS: Chloride 110 mmol/L (98-107); Glucose 111 mg/dL (74-106)
[2025-01-27] MEDS: ESTROGENS CONJUGATED 0.9 MG PO SCH (10:00)
[2025-01-27] MEDS: LOSARTAN POTASSIUM 50 MG TAB PO SCH (10:12)
[2025-01-27] MEDS: ATENOLOL 25 MG TAB PO SCH (10:13)
--- NOTE | 2025-01-27 16:06 | DVHPN2 ---
Progress Note Date Seen: Jan 27, 2025 Medical Necessity Reason Pt with a Central, PICC or Fol: No Subjective Patient reports: No new complaints Changes from previous H/P or p: No Changes Review of Systems: GI:Abnormal (Nausea, pain) Objective vital signs Vital Sign Date Time Temp Pulse Resp B/P (MAP) Pulse Ox O2 Delivery O2 Flow Rate FiO2 01/27/25 13:00 97.6 54 18 136/62 (86) 96 97.6 01/27/25 08:00 Room Air* 0 21 Total Intake and Output 01/26/25 01/26/25 01/27/25 15:00 23:00 07:00 Intake Total 1000 ml 240 ml Balance 1000 ml 240 ml medications Current Medications Medications Dose Ordered Sig/Jenna Route Start Time Stop Time Status Last Admin Dose Admin Acetaminophen/ Hydrocodone Bitart 1 tab Q4HP PRN PO 01/26/25 14:30 01/27/25 12:42 1 TAB Ondansetron HCl 4 mg Q4HP PRN IV 01/26/25 14:30 Acetaminophen 650 mg Q6HP PRN PO 01/26/25 14:30 Morphine Sulfate 2 mg Q4HPRN PRN IV 01/26/25 14:30 Atenolol 75 mg DAILY PO 01/27/25 10:00 01/27/25 10:13 75 MG Patient Own Medication 0.9 mg DAILY PO 01/27/25 10:00 Losartan Potassium 100 mg DAILY PO 01/27/25 10:00 01/27/25 10:12 100 MG Famotidine 20 mg DAILY IV 01/26/25 14:30 01/27/25 10:13 20 MG Piperacillin Sod/ Tazobactam Sod 100 ml @ 25 mls/hr Q8HR IV 01/26/25 22:00 01/27/25 05:51 25 MLS/HR Examination: GENERAL:Normal, HEENT:Normal, NECK:Normal, LUNGS:Normal, CVS:Normal, ABDOMEN:Normal (Epigastric discomfort), SKIN:Normal, NEURO:Normal laboratory and microbiology Laboratory Tests 01/27/25 07:02 Test 01/27/25 07:02 Range/Units Serum Glucose 111 H 74-106 mg/dL Microbiology Date/Time Source Procedure Growth Status 01/26/25 10:50 Voided Urine Urine Culture - Preliminary Resulted 01/26/25 09:58 Blood Blood Culture - Preliminary NO GROWTH AFTER 24 HOURS OF INCUBATION. Resulted Problem List/Assessment/Plan Problems(with codes): (1) Intractable abdominal pain (2) Gastroenteritis (3) Nausea Problem List/Assessment/Plan Intractable nausea and vomiting Abdominal pain Possible gastritis SIRS Patient says that abdominal pain improved after receiving antibiotics. NPO of low temperature and bradycardia possible sepsis due three abdominal infection. Continue tamsulosin Pain control with ketorolac Regular diet If pain improved plan to discharge home Full code Lovenox for DVT prophylaxis PPI for GI prophylaxis Plan discussed with: Patient My Orders My Orders Orders - DARSHANA HENSON MD Procedure Category Date Status Time Ketorolac Injection PHA 01/27/25 Verified (Toradol Injection) 16:00 Date of Service: Jan 27, 2025 Billing Provider: DARSHANA HENSON MD Common Visit Codes: 85294-[id number] INP/OBS CARE(HIGH) DARSHANA HENSON MD Jan 27, 2025 16:06
[2025-01-27] MEDS: SODIUM CHLORIDE 0.9% 1,000 ML IV SCH (18:51)
[2025-01-27] MEDS: KETOROLAC TROMETH 30 MG/ML 1ML VIAL IV PRN (20:26)
[2025-01-28 01:00] VITALS: BP 146/79; PULSE 49; RESP 19; TEMP 96.2; O2SAT 97
[2025-01-28 05:00] VITALS: BP 144/67; PULSE 52; RESP 19; TEMP 98.3; O2SAT 97
[2025-01-28 08:00] VITALS: PULSE 54; RESP 18; O2SAT 96
[2025-01-28 09:50] VITALS: BP 113/51; PULSE 54; RESP 18; TEMP 97.6; O2SAT 96
[2025-01-28] MEDS: HYDROcodone-ACET 5/325MG TAB PO PRN (13:29)
[2025-01-28 14:18] VITALS: BP 146/62; PULSE 57; RESP 18; TEMP 97.6; O2SAT 96
--- NOTE | 2025-01-28 17:13 | DVHDS2 ---
Discharge Summary Date of Admission Jan 26, 2025 at 14:19 Date of Discharge: Jan 28, 2025 Admitting Diagnosis (1) Intractable abdominal pain (2) Gastroenteritis (3) Nausea Labs/Diagnostic Data: Laboratory Results Test 01/27/25 07:02 01/26/25 13:41 01/26/25 10:50 01/26/25 09:58 White Blood Count 5.2 10^3/uL (4.4-10.8) Red Blood Count 3.97 10^6/uL (4.0-5.20) Hemoglobin 13.2 g/dL (12.2-16.2) Hematocrit 37.7 % (36.0-46.0) Mean Corpuscular Volume 95.0 fL (80.0-100.0) Mean Corpuscular Hemoglobin 33.3 pg (28.0-32.0) Mean Corpuscular Hemoglobin Concent 35.1 g/dL (32.0-36.0) Red Cell Distribution Width 13.0 % (11.8-14.3) Platelet Count 177 10^3/uL (140-450) Mean Platelet Volume 7.2 fL (6.9-10.8) Neutrophils (%) (Auto) 47.8 % (37.0-80.0) Lymphocytes (%) (Auto) 38.8 % (10.0-50.0) Monocytes (%) (Auto) 10.3 % (0.0-12.0) Eosinophils (%) (Auto) 1.9 % (0.0-7.0) Basophils (%) (Auto) 1.2 % (0.0-2.0) Neutrophils # (Auto) 2.5 10 ^3/uL (1.6-8.6) Lymphocytes # (Auto) 2.0 10 ^3/uL (0.4-5.4) Monocytes # (Auto) 0.5 10 ^3/uL (0-1.3) Eosinophils # (Auto) 0.1 10 ^3/uL (0-0.8) Basophils # (Auto) 0.1 10 ^3/uL (0-0.2) Nucleated Red Blood Cells 0.1 % Sodium Level 141 mmol/L (136-145) Potassium Level 4.4 mmol/L (3.5-5.1) Chloride Level 110 mmol/L (98-107) Carbon Dioxide Level 23 mmol/L (20-31) Anion Gap 8 (5-15) Blood Urea Nitrogen 12 mg/dL (9-23) Creatinine 0.98 mg/dL (0.550-1.02) Glomerular Filtration Rate Calc 59 mL/min (>90) BUN/Creatinine Ratio 12.2 (10.0-20.0) Serum Glucose 111 mg/dL (74-106) Calcium Level 9.2 mg/dL (8.7-10.4) Total Bilirubin 0.5 mg/dL (0.2-1.0) Aspartate Amino Transferase (AST) 25 U/L (13-40) Alanine Aminotransferase (ALT) 32 U/L (7-40) Alkaline Phosphatase 82 U/L (46-116) Total Protein 6.5 g/dL (5.7-8.2) Albumin 3.8 g/dL (3.2-4.8) Troponin I High Sensitivity 4 ng/L (</=34) Urine Color Light-yellow (Yellow) Urine Clarity Clear (Clear) Urine pH 5.5 (5.0-9.0) Urine Specific [place] 1.008 (1.001-1.035) Urine Protein Negative (Negative) Urine Ketones Negative (Negative) Urine Blood Negative /uL (Negative) Urine Nitrite Negative (Negative) Urine Bilirubin Negative (Negative) Urine Urobilinogen Normal mg/dL (Negative) Urine Leukocyte Esterase Negative /uL (Negative) Urine RBC 1 /hpf (0 - 4) Urine Microscopic WBC 1 /HPF (0-5) Urine Squamous Epithelial Cells Few /hpf (<5) Urine Bacteria Few /hpf (None Seen) Urine Glucose Normal mg/dL (Normal) Lactic Acid Level 1.1 mmol/L (0.4-2.0) Other Laboratory Tests 01/27/25 07:02 Brief Hx & Hospital Course: Milagros Aden is a 79-year-old female with past medical history of multiple falls, bilateral ankle fractures, cervical cancer, hypertension, nephrolithiasis, diverticulitis, bowel obstruction, and hysterectomy who presents to the ED with abdominal pain that began Thursday last week. She reports that the pain is 5/10 throbbing and constant. She states that she has it started from her lower center of the back radiated up to her left upper quadrant. She states that the abdominal pain started on Thursday. She also reports that there are no alleviating or triggering factors. After patient admitted patient is started on antibiotics, fluids PPI for abdominal pain. Patient's pain slowly improved. Today, patient's abdominal pain resolved. The patient is medically stable to be discharged home Condition at Discharge: Good Final Diagnosis/Problems List Intractable abdominal pain Problems List: (1) Gastroenteritis Status: Acute (2) Intractable abdominal pain Status: Acute (3) Nausea Status: Acute (4) Dehydration Status: Acute Discharge Disposition: Home Discharge Instruct/Medications Diet: Cardiac 2g Na,low cholest (2 gm sodium, low cholesterol) Activity: No Restrictions, As Tolerated Care Plan: Follow up with the PCP one week upon discharge Scheduled Atenolol (Atenolol), 75 MG PO DAILY, (Reported) Esomeprazole Magnesium Trihydr (Nexium), Unknown Dose PO DAILY, (Reported) Estrogens, Conjugated (Premarin Tablet), 0.9 MG PO DAILY, (Reported) Ibuprofen (Motrin Ib), 800 MG PO PRN, (Reported) Olmesartan Medoxomil (Benicar), 1 TAB PO DAILY, (Reported) Ranitidine Hcl (Ranitidine 75), Unknown Dose PO DAILY, (Reported) Miscellaneous Medications Nitrofurantoin (Macrodantin), 1 CAP PO, (Reported) 55 Discharge Statement: "Patient was advised to return to the ER or call 911 if any headaches, dizziness, shortness of breath, chest pain, abdominal pain, bleeding, fevers, or worsening of medical condition. Patient was counseled about treatment plan, medications, possible side effects, patientverbalized understanding. All questions were answered to the best of my ability. This discharge took greater then 30 minutes in planning, reviewing documentation, counseling the patient, and discussing with other team members." ASSESSMENT ASSESSMENT Assessment Intractable abdominal pain Date of Service: Jan 28, 2025 Billing Provider: DARSHANA HENSON MD Common Visit Codes: 38628-ICL/OBS DISCH DAY >30min DARSHANA HENSON MD Jan 28, 2025 17:13
[2025-01-28 17:52] VITALS: BP 144/64; PULSE 52; RESP 17; TEMP 97.7; O2SAT 96
== END 2025-01-28 18:45 | disposition home or self-care (01) | DRG 392 ==
LOC: ER 09:22 → EDBD 09:22 → OVERFLOW 14:19 → EAST 16:18
PROVIDERS: ADMIT Internal Medicine; ATTEND Internal Medicine
DX: A09 Infectious gastroenteritis and colitis, unspecified (principal); N17.9 Acute kidney failure, unspecified; R65.10 Systemic inflammatory response syndrome (SIRS) of non-infectious origin without acute organ dysfunction; E66.9 Obesity, unspecified; R30.0 Dysuria; E86.0 Dehydration; I10 Essential (primary) hypertension; Z88.1 Allergy status to other antibiotic agents; Z85.41 Personal history of malignant neoplasm of cervix uteri; Z90.710 Acquired absence of both cervix and uterus; Z91.81 History of falling; Z68.35 Body mass index [BMI] 35.0-35.9, adult
CPT/HCPCS: 36415; 71045; 72100; 74018; 74177; 80048; 80053; 81001; 83605; 84484; 85025; 87040; 87086; 87088; 87186; 93005; 96374; 96375; 99291; G0378; J1885; J2405; J2543; J3490